=== PATIENT | male | born 1980 | race African-American/Black ===

== ENCOUNTER 2017-08-16 18:55 | Emergency (ER) | payer SELFPAY ==
[~2017-08-16] VITALS: Ht 172.7 cm; Wt 85.9 kg
[~2017-08-16 18:55] MED LIST: CEFT500T PO; PHEN12.5 PR
[2017-08-16 19:04] VITALS: BP 142/87; PULSE 92; RESP 18; TEMP 98.4; O2SAT 99
[2017-08-16] MEDS ORDERED: predniSONE 20 MG TAB PO ONE (19:45)
[2017-08-16] MEDS ORDERED: CLINDAMYCIN PHOS 600 MG/4 ML VIAL IM ONE (19:45)
[2017-08-16] MEDS ORDERED: PERI0.126 SWISH-SPIT (19:48)
[2017-08-16] MEDS ORDERED: TRAM50TA PO (19:48)
[2017-08-16] MEDS ORDERED: CLIN150C14 PO (19:48)
[2017-08-16] MEDS ORDERED: IBUP1TAB7 PO (19:48)
[2017-08-16] MEDS ORDERED: PRED-503 PO (19:48)
--- NOTE | 2017-08-16 19:48 | PD ---
HPI Chief Complaint: Oral / Dental Pain or Problem Time Seen by Provider: 19:38 Travel History International Travel<30 days: No Contact w/Intl Traveler<30days: No Traveled to known affect area: No History of Present Illness HPI 36-year-old male presents to the emergency Department with complaint of right upper tooth pain that started today with onset of facial swelling. He broke his tooth about a month ago eating pineapple. Denies fever, vomiting. Denies sore throat, difficulty swallowing, unusual drooling. His mom gave him some tramadol and he took it and has had relief of pain. He denies pain at this time. Symptoms are moderate in severity. No known aggravating factors. No primary care provider. Denies significant past medical history. Allergies as listed on the chart. Has no other medical complaints. No other modifying factors or associated signs and symptoms. PFSH Past Medical History Diminished Hearing: No Past Surgical History Oral Surgery: Yes (JAW REPAIRED,FRACTURED) Social History Alcohol Use: Yes (SOCIALLY) Tobacco Use: No Substance Use: No Allergies-Medications (Allergen,Severity, Reaction): Coded Allergies: iodine (Unverified Allergy, Mild, 03/14/17) potassium iodide (Unverified Allergy, Mild, 03/14/17) povidone-iodine (Unverified Allergy, Mild, 03/14/17) sodium iodide (Unverified Allergy, Mild, 03/14/17) sodium iodide (Unverified Allergy, Mild, 03/14/17) Reported Meds & Prescriptions Reported Meds & Active Scripts Active Peridex Liq (Chlorhexidine Gluconate (Mouth) Liq) 0.12% Soln 15 Ml SWISH-SPIT BID 10 Days Deltasone (Prednisone) 20 Mg Tab 20 Mg PO BID 4 Days start 08/17/2017 Tramadol (Tramadol HCl) 50 Mg Tab 50 Mg PO Q4H PRN Ibuprofen 800 Mg Tab 800 Mg PO Q6HR PRN Clindamycin (Clindamycin HCl) 150 Mg Cap 450 Mg PO Q6H 10 Days Phenergan (Promethazine HCl) 12.5 Mg Sup 12.5 Mg ID Q4-6HPRN FOR NAUSEA Ceftin (Cefuroxime Axetil) 500 Mg Tab 500 Mg PO BID Review of Systems Except as stated in HPI: all other systems reviewed are Neg Physical Exam Narrative GENERAL: Well-nourished, well-developed black male patient, in no acute distress ; afebrile, nontoxic-appearing SKIN: Warm and dry. HEAD: Atraumatic. Normocephalic. Right facial edema; without erythema or tenderness on palpation. No lymphadenopathy. EYES: Pupils equal and round. No scleral icterus. No injection or drainage. ENT: Mucosa pink and moist. No erythema or exudates. No uvular edema. No uvular , palatal, or tonsillar deviation. Airway patent. EARS: Bilateral pinnae and external canals appear within normal limits. Bilateral tympanic membranes without erythema, dullness or perforation. MOUTH: Mucous membranes moist, no lesions, tongue and gums appear normal. Tooth #6 with tenderness on palpation; with large cavity and decay. Surrounding gingiva is with very minimal edema; appears as with a dental abscess is developing to the gingiva; there is no fluctuance to the area at this time; the area is with erythema and without drainage. NECK: Trachea midline. No lymphadenopathy. CARDIOVASCULAR: Regular rate. RESPIRATORY: No accessory muscle use. GASTROINTESTINAL: Rounded. MUSCULOSKELETAL: No obvious deformities. No clubbing. No cyanosis. No edema. NEUROLOGICAL: Awake and alert. Oriented 3. No obvious cranial nerve deficits. Motor grossly within normal limits. Normal speech. PSYCHIATRIC: Appropriate mood and affect; insight and judgment normal. Data Data Last Documented VS Vital Signs Date Time Temp Pulse Resp B/P (MAP) Pulse Ox O2 Delivery O2 Flow Rate FiO2 08/16/17 19:04 98.4 92 18 142/87 (105) 99 Room Air Orders Orders Clindamycin Inj (Cleocin Inj) (08/16/17 19:45) Prednisone (Deltasone) (08/16/17 19:45) Ed Discharge Order (08/16/17 19:49) [facility] Medical Decision Making Medical Screen Exam Complete: Yes Emergency Medical Condition: Yes Medical Record Reviewed: Yes Differential Diagnosis Dental abscess, infected dental carry, dentalgia Narrative Course 36-year-old male with right upper dental abscess that is developing. There is an area that appears to be a developing abscess, but is nonfluctuant at this time. Patient is afebrile and nontoxic pain. He denies fever, vomiting. Denies and 600 mg IM and Deltasone administered in the ER. Patient took tramadol and denies pain at this time. Clindamycin, tramadol, ibuprofen, Peridex mouth rinse, Deltasone prescribed for home. She provided emergency dental information sheet for follow-up. Instructed patient to follow up with dentist. Instructed patient to return for incision and drainage if worsening of facial edema despite antibiotic therapy. Instructed patient to follow up with primary care provider. Patient verbalizes understanding and agreement with treatment plan. Patient is medically cleared and stable for discharge. Discussed reasons to return to the emergency department. Patient agrees with treatment plan. The patients vital signs are stable and the patient is stable for outpatient follow-up and treatment. Patient discharged home, stable and in no acute distress. Diagnosis Primary Impression: Dental abscess Referrals: Dentist Primary Care Physician Patient Instructions: Dental Abscess (ED), Dental Caries (ED), General Instructions Departure Forms: Tests/Procedures, Work Release Enter return to work date: Aug 21, 2017 Additional Instructions: Complete full course of antibiotics; fill your antibiotics at [facility] pharmacy Ibuprofen or Tylenol as directed and as needed to reduce pain and inflammation Use Magic mouthwash rinse as directed and as needed to decrease pain Use Peridex as directed for oral hygiene Warm or cool compresses to the affected area Follow-up with dentist Follow-up with primary care provider Return to emergency department immediately with worsening of symptoms Med/Other Pt SpecificInfo: Prescription(s) given Scripts Chlorhexidine Gluconate (Mouth) Liq (Peridex Liq) 0.12% Soln 15 ML SWISH-SPIT BID for 10 Days, #300 ML 0 Refills Prov: Talita Smith 08/16/17 Prednisone (Deltasone) 20 Mg Tab 20 MG PO BID for 4 Days, #8 TAB 0 Refills start 08/17/2017 Prov: Talita SmithP 08/16/17 Tramadol (Tramadol) 50 Mg Tab 50 MG PO Q4H Y for PAIN, #10 TAB 0 Refills Prov: Talita Smith 08/16/17 Ibuprofen (Ibuprofen) 800 Mg Tab 800 MG PO Q6HR Y for PAIN, #30 TAB 0 Refills Prov: Talita Smith 08/16/17 Clindamycin (Clindamycin) 150 Mg Cap 450 MG PO Q6H for Infection for 10 Days, #120 CAP 0 Refills Prov: Talita Smith 08/16/17 Disposition: 01 DISCHARGE HOME Condition: Stable Talita Smith Aug 16, 2017 19:48
== END 2017-08-16 20:44 | disposition home or self-care (01) ==
LOC: NEPK 18:55
DX: K04.7 Periapical abscess without sinus (principal); Z79.899 Other long term (current) drug therapy
CPT/HCPCS: 96372; 99284; J7512